=== PATIENT | male | born 1960 | race African-American/Black ===

== ENCOUNTER 2017-09-22 20:10 | Emergency (ER) | payer MEDICAID ==
[~2017-09-22] VITALS: Ht 188 cm; Wt 79.0 kg
[2017-09-23] MEDS ORDERED: OLANZAPINE 10 MG/VIAL IM ONE (01:15)
[2017-09-23 01:35] LABS: BASOPHILS % 0.7 % (0.0-2.0); EOSINOPHILS % 0.3 % (0.0-5.0); HEMATOCRIT. 45.8 % (42.0-52.0); LYMPHOCYTES % 17.3 % (20.0-50.0); MEAN CORPUSCULAR HEMOGLOBIN 31.4 pg (28.0-32.0); MEAN CORPUSCULAR VOLUME 89.5 fL (80.0-94.0); MEAN PLATELET VOLUME 7.3 fl (7.4-10.4); MONOCYTES % 2.6 % (2.0-8.0); NEUTROPHILS % 79.1 % (40.0-76.0); PLATELET 339 x1000/uL (130-400); RED BLOOD CELL COUNT 5.11 mill/uL (4.7-6.1); RED CELL DISTRIBUTION WIDTH 13.6 % (11.6-14.6)
[2017-09-23 01:43] LABS: CHLORIDE 106 mEq/L (98-107)
[2017-09-23 01:58] LABS: ETHANOL BLOOD 332 mg/dL
[2017-09-23] MEDS ORDERED: LIDOCAINE HCL/PF 1% 10 MG/ML 5ML VIAL IJ SCH (05:25)
[2017-09-23] MEDS ORDERED: LIDOCAINE HCL 1% 20ML VIAL (Pyxis) INJ MC ONE (05:30)
[2017-09-23 07:34] LABS: *AMPHETAMINES SCREEN URINE NEGATIVE (NEGATIVE); *BARBITURATES SCREEN URINE NEGATIVE (NEGATIVE); *BENZODIAZEPINES SCREEN URINE NEGATIVE (NEGATIVE); *COCAINE SCREEN URINE PRESUMTIVE POSITIVE (NEGATIVE); METHADONE URINE SCREEN NEGATIVE (NEGATIVE)
[2017-09-23 07:35] LABS: CANNABINOID URINE SCREEN NEGATIVE (NEGATIVE); OPIATES URINE SCREEN NEGATIVE (NEGATIVE); PHENCYCLIDINE URINE SCREEN NEGATIVE (NEGATIVE)
[2017-09-24 13:00] VITALS: BP 130/77
== END 2017-09-24 13:00 | disposition home or self-care (01) ==
LOC: EDBD 21:09 → ER 21:09
DX: S01.01XA Laceration without foreign body of scalp, initial encounter (principal); F10.129 Alcohol abuse with intoxication, unspecified; F20.9 Schizophrenia, unspecified; Z78.1 Physical restraint status; Y90.8 Blood alcohol level of 240 mg/100 ml or more; W17.89XA Other fall from one level to another, initial encounter; Y93.89 Activity, other specified; Y92.89 Other specified places as the place of occurrence of the external cause; Y99.8 Other external cause status
CPT/HCPCS: 12001; 36415; 70450; 80305; 96372; 99285; J3490